=== PATIENT | male | born 1945 | race Caucasian/White ===

== ENCOUNTER → 2020-01-25 | Outpatient (CLI) | payer OTHER, MEDICARE ==
[~2020-01-25] MED LIST: AMARYL4 MG PO; CARVEDILOL25 MG PO; CO Q-10400 MG PO; COQ-10100 MG PO; DITROPAN XL5 M1 PO; GLUCOPHAGE1000 MG PO; GLYXAMBI 25 MG1 EACH PO; LIPITOR40 MG PO; LOTENSIN10 MG PO; NITROSTAT0.4 M1 SUBLING; PACERONE200 MG PO; PRILOSEC OTC20 MG PO; UNICOMPLEX M TA1 TA1 PO; XARELTO15 MG PO
[2020-01-25 08:27] LABS: ABSOLUTE NEUTROPHILS 3.8 thou/uL (1.4-8.2); BASOPHILS 0.9 % (0.0-2.0); EOSINOPHILS 2.9 % (0.0-3.0); HEMATOCRIT 43.3 % (42.0-52.0); HEMOGLOBIN 14.3 gm/dL (14.0-18.0); LYMPHOCYTES 23.9 % (24.0-44.0); MCH 31.8 pg (26.0-34.0); MCHC 32.9 g/dL (28.0-37.0); MCV 96.8 fL (80.0-100.0); MONOCYTES 10.9 % (1.0-8.0); POLYS 61.4 % (36.0-66.0); RBC 4.48 mil/uL (4.50-6.00); RDW 16.7 % (10.5-14.5); WBC 6.1 thou/uL (4.0-11.0)
[2020-01-25 09:09] LABS: ALBUMIN 3.7 g/dL (3.4-5.0); CALCIUM 8.2 mg/dL (8.5-10.1); CREATININE 1.8 mg/dL (0.7-1.3); POTASSIUM 5.2 mmol/L (3.5-5.1); TOTAL BILIRUBIN 0.3 mg/dL (0.2-1.0); TOTAL PROTEIN 6.4 g/dL (6.4-8.2)
[2020-01-25 10:57] LABS: LARGE PLATELETS FEW; PLATELET COUNT 136 thou/uL (150-400); PLATELET ESTIMATE M
--- NOTE | 2020-01-25 11:31 | NUR ---
LATE ENTRY. PT ARRIVES TO CV HOLDING AT 0840 FOR IV HYDRATION PRIOR TO CT 18 GAUGE STARTED LAC. 400 CC'S NS INFUSED PRIOR TO CT. THEN ANOTHER [address] IV DC'D AND PT AMBULATED TO EXIT WITH STEADY GAIT AT 1030. PT INSTRUCTED TO PUSH PO FLUIDS TODAY AND TO HOLD METFORMIN FOR 48 HOURS. PT AND VERBALIZE UNDERSTANDING
== END ==
LOC: CAT
PROVIDERS: ATTEND Internal Medicine Cardiovascular Disease
DX: I48.91 Unspecified atrial fibrillation (principal); I25.10 Atherosclerotic heart disease of native coronary artery without angina pectoris; K44.9 Diaphragmatic hernia without obstruction or gangrene; M47.814 Spondylosis without myelopathy or radiculopathy, thoracic region

== ENCOUNTER 2020-01-30 06:27 | Observation (INO) | payer OTHER, MEDICARE ==
[~2020-01-30] VITALS: Ht 177.8 cm; Wt 93.0 kg
[2020-01-30 07:10] VITALS: BP 137/71
[2020-01-30 07:32] LABS: ABSOLUTE NEUTROPHILS 4.9 thou/uL (1.4-8.2); BASOPHILS 0.8 % (0.0-2.0); EOSINOPHILS 3.1 % (0.0-3.0); HEMATOCRIT 41.1 % (42.0-52.0); HEMOGLOBIN 13.7 gm/dL (14.0-18.0); MCH 31.9 pg (26.0-34.0); MCHC 33.2 g/dL (28.0-37.0); MCV 95.9 fL (80.0-100.0); MONOCYTES 9.7 % (1.0-8.0); POLYS 68.4 % (36.0-66.0); RBC 4.28 mil/uL (4.50-6.00); RDW 15.9 % (10.5-14.5); WBC 7.2 thou/uL (4.0-11.0)
[2020-01-30 07:41] LABS: CALCIUM 7.9 mg/dL (8.5-10.1); CREATININE 1.8 mg/dL (0.7-1.3); POTASSIUM 4.3 mmol/L (3.5-5.1)
[2020-01-30 07:46] LABS: ALBUMIN 3.6 g/dL (3.4-5.0); TOTAL BILIRUBIN 0.3 mg/dL (0.2-1.0); TOTAL PROTEIN 6.5 g/dL (6.4-8.2)
[2020-01-30] MEDS ORDERED: PACERONE200 MG PO (07:50)
[2020-01-30] MEDS ORDERED: LOTENSIN10 MG PO (07:51)
[2020-01-30] MEDS ORDERED: LIPITOR40 MG PO (07:51)
[2020-01-30] MEDS ORDERED: CO Q-10400 MG PO (07:52)
[2020-01-30] MEDS ORDERED: GLUCOPHAGE1000 MG PO (07:53)
[2020-01-30] MEDS ORDERED: GLYXAMBI 25 MG1 EACH PO (07:53)
[2020-01-30 07:54] LABS: APTT 26.6 Seconds (24.5-32.8); PROTIME 9.7 Seconds (9.3-11.4)
[2020-01-30] MEDS ORDERED: UNICOMPLEX M TA1 TA1 PO (07:54)
[2020-01-30] MEDS ORDERED: PRILOSEC OTC20 MG PO (07:56)
[2020-01-30] MEDS ORDERED: NITROSTAT0.4 M1 SUBLING (07:56)
[2020-01-30] MEDS ORDERED: XARELTO15 MG PO (07:57)
[2020-01-30] MEDS ORDERED: DITROPAN XL5 M1 PO (07:57)
[2020-01-30] MEDS ORDERED: AMARYL4 MG PO (08:00)
[2020-01-30] MEDS ORDERED: COQ-10100 MG PO (08:00)
[2020-01-30] MEDS ORDERED: CARVEDILOL25 MG PO (08:02)
[2020-01-30 09:08] LABS: PLATELET COUNT 137 thou/uL (150-400)
[2020-01-30 09:09] LABS: LARGE PLATELETS OCCASIONAL
[2020-01-30 13:00] VITALS: BP 150/92
[2020-01-30 14:00] VITALS: BP 168/92
[2020-01-30 15:00] VITALS: BP 162/100
[2020-01-30 17:00] VITALS: BP 148/74
--- NOTE | 2020-01-30 17:19 | NUR ---
NEW ADMIT POST CARDIAC ABLATION. PT ALERT X4, FROM HOME WITH , DENIES PAIN, RIGHT GROIN SIGHT INTACT WITH CLOSURE DEVICE REMOVED WITH DR FRANCIS AND DRESSING REPLACED. NOTED SMALL HEMATOMA TO SIGHT AT DRESSING CHANGE. PROVIDED PRESURE AND SECOND NURSE KATHERINE ASSESS GROIN SIGHT. INSTRUCTED PT TO KEEP LEG IMMOBILIZE UNTIL 6PM AND TO HOLD PRESSURE WHEN COUGHING ETC PER EDUCATION. POST CARDIAC VS TAKEN. TX ELEVATED BP WITH SCHEDULED CARVEDILOL. VAZQUEZ OKAY TO REMOVE AFTER 6PM. LIKE TO DC TOMORROW MORING. CALL LIGHT AND PERSONAL ITEMS IN REACH.
[2020-01-30 20:30] VITALS: BP 132/46
[2020-01-31 04:45] VITALS: BP 132/69
--- NOTE | 2020-01-31 05:55 | NUR ---
ASSUME CARE 1900. PT/VITALS STABLE. MILD TEMP NOTED AT THE START OF THE SHIFT, WHICH HAS SINCE STABILIZED. DENIES ANY PAIN. UP INDEPENDENTLY WITH EXCELLENT TOLERANCE TO ACTIVITY. VAZQUEZ OUT AT START OF SHIFT. BORDERLINE - POOR URINE OUTPUT NOTED. PT DENIES ANY BURNING OR DISCOMFORT WITH URINATING. ENCOURAGED TO DRINK ADEQUATE INPUT FOR BETTER KIDNEY FUNCTION. ASSESSMENT CHARTED. PROGRESSING WEL WITH POC. PLAN IS TO CONTINUE TO WATCH KIDNEY AND BLADDER FUNCTION/POSSIBLE DISCHARGE TODAY. WILL CONTINUE TO FOLLOW [facility] POC
[2020-01-31 07:30] VITALS: BP 136/54
[2020-01-31 10:51] VITALS: BP 136/54
[2020-01-31 11:10] VITALS: BP 107/55
--- NOTE | 2020-01-31 12:33 | NUR ---
ASSUMED CARE OF PT AT SHIFT CHANGE. ASSESSMENT CHARTED. MEDS GIVEN PER JUL. PT A&OX4, NO C/O PAIN. R GROIN SITE CDI, WITHOUT HEMATOMA. VSS, NO DISTRESS NOTED. DISCHARGE ORDERS AND INSTRUCIONS COMLETE. IV AND TELE DC'D. THIS NURSE WALKED PT TO ER ENTRANCE WHERE PRIVATE CAR WAS WAITING.
--- NOTE | 2020-02-03 14:48 | P ---
[facility] [facility] [place] [address] PROCEDURE REPORT Name: BERENICE VARGAS [id number] Admission: 01/30/20 Attend Phys: Natanael Tomlin MD Discharge: 01/31/20 Date of : 41 Report #: [id number] THIS REPORT FOR: cc: Jose Angel Zazueta,Natanael Conde MD ~ CC: Jose Angel Tomlin DATE OF SERVICE: 01/30/2020 ATRIAL FIBRILLATION ABLATION PREOPERATIVE DIAGNOSIS: Atrial fibrillation. POSTOPERATIVE DIAGNOSIS: Atrial fibrillation. PROCEDURES PERFORMED: 1. Atrial fibrillation ablation, CPT code 28943. 2. 3D mapping, CPT code 92096. 3. Intracardiac echo, CPT code 69323. 4. Focal ablation, CPT code 36467. 5. Preprocedural ICD reprogramming, CPT code 73555. 6. Post-procedure ICD reprogramming, CPT code 69525. HISTORY: The patient is a 74-year-old male with a history of atrial fibrillation, coronary artery disease, status post CT with an ischemic cardiomyopathy, status post Biotronik dual-chamber ICD implantation, who has had worsening atrial fibrillation and is here for ablation. ANESTHESIA: The patient underwent general anesthesia with no anesthesia related complications. DESCRIPTION OF PROCEDURE: The patient underwent informed consent. We discussed the details of the procedure including the risks, which include but not limited to bleeding, vascular damage, stroke, CT as well as possible cardiac perforation. He understood these risks and is willing to proceed. The patient was brought to EP laboratory in a fasting and unsedated state and prepped and draped in a sterile fashion. Before initiation of the procedure, his ICD was reprogrammed and therapies were disabled. Next, I obtained access to the right femoral vein x 3, placing an 8, 9 and 7-Pashto short sheath in the right femoral vein using the modified Seldinger technique. Next, under fluoroscopy, I placed a decapolar catheter into the coronary sinus, which I had difficulties maintaining the catheter in this position, would fall out quite readily. The ICE catheter was placed in the right atrium and using intracardiac [facility] [address] [place] [address] PROCEDURE REPORT Name: BERENICE VARGAS Room #: 211-P [facility].#: [id number] Admission: 01/30/20 Attend Phys: Natanael Tomlin MD Discharge: 01/31/20 Date of : 41 Report #: [id number] ultrasound, I created a detailed 3D geometry of the left atrium with evidence of two left and two right pulmonary veins. The heart was somewhat rotated. The two left veins were in close proximity to each other, but did not really constitute a left common ostium. The CT scan was then merged with the CartoSound imaging. The patient was then systemically heparinized and a transseptal was performed using an SL1 sheath and a Council needle. Transseptal was straightforward. I then exchanged the SL1 sheath for the cryo sheath and placed this into the left atrium. Next, using a [employer] Saldana Lasso catheter, a 3D voltage map of the left atrium was created. Then, the cryoablation balloon was placed into the left atrium. Both the left veins were difficult to isolate. I performed two initial freezes on the left superior pulmonary vein, but due to poor temps, I came off early. A third freeze was able to get a better seal, but temps were -55 degrees, so I came off after 100 seconds. A fourth freeze was performed and the temps were not very good, so I came off after 3 minutes and then a fifth freeze was performed where I stayed on for 130 seconds as temperatures reached -55 degrees. At this point, it appeared that the pulmonary vein was now isolated. I then turned my attention to the left inferior pulmonary vein. I performed 3 initial freezes, each of 4 minutes' duration and although had good temps at -40 degrees, I did not isolate the vein. My transseptal was somewhat high and the left inferior pulmonary vein was somewhat small in nature. I therefore decided to work on the right-sided veins. The right superior pulmonary vein underwent a 4-minute, followed by 3-minute freeze and the vein appeared isolated. It appeared that it had isolated during the first freeze. I then turned my attention to the right inferior pulmonary vein. This vein underwent a 4-minute, followed by a 3-minute freeze. This vein isolated during the second freeze within 25 seconds. I then went back to the left inferior pulmonary vein and performed an additional freeze. At this time, I got my wire into a lower branch and I performed a 4-minute freeze and the vein isolated within 20 seconds. I then performed a repeat voltage map and all veins were isolated. I therefore decided to perform a roofline and I performed 3 freezes anchored from the left superior pulmonary vein and one freeze anchored from the right superior pulmonary vein. All of these freezes were of 3 minutes duration. A repeat voltage map was now created and we had clearly isolated the posterior roof region of the left atrium as well. As such, the procedure was concluded. Using intracardiac ultrasound, I verified there was no pericardial effusion. The patient received systemic protamine and sheaths were pulled and a [id number]-do-[id number] suture with a 3-way stopcock was placed for hemostasis. The ICD was reprogrammed and found to be functioning normally and therapies were re-enabled. There were no procedure related complications. CONCLUSIONS: 1. Successful AFib ablation with isolation of pulmonary veins. [facility] [address] [place] [address] PROCEDURE REPORT Name: BERENICE VARGAS Room #: 211-P [facility] Alejandra Lott#: [id number] Admission: 01/30/20 Attend Phys: Natanael Tomlin MD Discharge: 01/31/20 Date of : 41 Report #: [id number] 2. Successful posterior roofline creation. 3. Successful ICD reprogramming. <ELECTRONICALLY SIGNED> By: Natanael Tomlin MD 02/03/20 1448 1220 1455 Natanael Tomlin MD /nt
== END 2020-01-31 15:01 | disposition home or self-care (01) ==
LOC: CATH → 2N 13:14
PROVIDERS: ADMIT Internal Medicine Cardiovascular Disease; ATTEND Internal Medicine Cardiovascular Disease
DX: I48.91 Unspecified atrial fibrillation (principal); I25.5 Ischemic cardiomyopathy; E11.9 Type 2 diabetes mellitus without complications; I10 Essential (primary) hypertension; I51.9 Heart disease, unspecified; N28.9 Disorder of kidney and ureter, unspecified; Z79.899 Other long term (current) drug therapy
CPT/HCPCS: 62110; 62900; 65020; 70005

== ENCOUNTER → 2021-04-02 | Outpatient (CLI) | payer OTHER ==
--- NOTE | 2021-04-02 12:20 | 2DMMODE ---
[facility] [place] [address] 2 D/M-MODE ECHOCARDIOGRAM Name: BERENICE VARGAS Room #: REG YUMIKO AgostoAraceli#: [id number] Admission: 04/02/21 Attend Phys: Natanael Tomlin MD Discharge: Date of : 41 Report #: [id number] THIS REPORT FOR: cc: Jose Angel Zazueta Bradley L. DO Lundgren, Craig H. MD [facility] ~ APPROVED REPORT Study performed: 04/02/2021 12:16:40 EXAM: Comprehensive 2D, Doppler, and color-flow Echocardiogram Patient Location: Out-Patient Room #: 1 Status: routine BSA: 2.16 HR: 55 bpm BP: 110/80 mmHg Rhythm: Pacemaker Other Information Study Quality: Good Indications ICD: Cardiomyopathy Hypertension/HDD 2D Dimensions RVDd: 40.95 mm IVSd: 11.73 (7-11mm) LVOT Diam: 23.59 (18-24mm) LVDd: 56.42 mm PWd: 12.19 (7-11mm) Ascending Ao: 36.87 (22-36mm) LVDs: 48.26 (25-40mm) Left Atrium: 45.96 (27-40mm) Aortic Root: 33.73 mm IVC: 18.00 mm Volumes Left Atrial Volume (Systole) Single Plane 4CH: 76.29 mL Single Plane 2CH: 83.43 mL LA ESV Index: 44.00 mL/m2 Aortic Valve AoV Peak Quinten.: 1.27 m/s AO Peak Gr.: 6.44 mmHg LVOT Max P.47 mmHg [facility] [address] [place] [address] 2 D/M-MODE ECHOCARDIOGRAM Name: BERENICE VARGAS Room #: REG [facility]#: [id number] Admission: 04/02/21 Attend Phys: Natanael Tomlin Discharge: Date of : 41 Report #: [id number] LVOT Max V: 1.17 m/s PHILLIP Vmax: 4.03 cm2 Pulmonary Valve PV Peak Quinten.: 0.95 m/s PV Peak Gr.: 3.61 mmHg Tricuspid Valve TR Peak Quinten.: 2.43 m/s TR Peak Gr.: 23.56 mmHg PA Pressure: 29.00 mmHg Left Ventricle The left ventricle is normal size. There is global hypokinesis of the left ventricle. Akinesis base of inferior wall. Mild concentric left ventricular hypertrophy. Left ventricular ejection fraction is moderately decreased. LVEF 35%. This study is not technically sufficient to allow evaluation of the LV diastolic function. Right Ventricle The right ventricle is normal size. The right ventricular systolic function is normal. Device lead is present in the right ventricle. Atria Left atrium is dilated. Right atrium is dilated. Device lead is present in the right atrium. Aortic Valve The aortic valve is mildly sclerotic, trileaflet. Trace aortic regurgitation. There is no aortic valvular stenosis. Mitral Valve The mitral valve is normal in structure. Mild-moderate mitral regurgitation. No evidence of mitral valve stenosis. Tricuspid Valve The tricuspid valve is normal in structure. There is trace tricuspid regurgitation. Estimated PAP 29 mmHg. There is no pulmonary hypertension. Pulmonic Valve The pulmonary valve is normal in structure. There is no pulmonic valvular regurgitation. Great Vessels The aortic root is normal in size. IVC is normal in size and collapses >50% with inspiration. [facility] [place] [address] 2 D/M-MODE ECHOCARDIOGRAM Name: ALICIABERENICE BRIDGET Room #: REG [facility]#: [id number] Admission: 04/02/21 Attend Phys: Natanael Tomlin Discharge: Date of : 41 Report #: [id number] Pericardium There is no pericardial effusion. <Conclusion> Irregular, bradycardic rhythm makes assessment of LV function difficult Left ventricular ejection fraction is moderately decreased. There is global hypokinesis of the left ventricle. Akinesis base of inferior wall. LVEF 35%. The aortic valve is mildly sclerotic, trileaflet. Trace aortic regurgitation, no stenosis. The mitral valve is normal in structure. Mild-moderate mitral regurgitation. There is trace tricuspid regurgitation. Estimated pulmonary artery pressure of 29 mmHg. There is no pericardial effusion. <ELECTRONICALLY SIGNED> By: Nando Montoya MD, FACC 04/02/21 1220 19 19 Nando Montoya MD, FAC /INF
== END ==
LOC: CV 10:56
PROVIDERS: ATTEND Internal Medicine Cardiovascular Disease
DX: I34.1 Nonrheumatic mitral (valve) prolapse (principal); I48.91 Unspecified atrial fibrillation; I25.5 Ischemic cardiomyopathy